=== PATIENT | male | born 1935 | race Caucasian/White ===

== ENCOUNTER 2019-02-28 10:34 | Outpatient (CLI) | payer MEDICARE ==
[2019-02-28] MEDS ORDERED: ISOVUE-370 76%-LOCM 1 ML ONE (13:34)
--- NOTE | 2019-02-28 13:58 | CT ---
CT OF THE ABDOMEN AND PELVIS WITH IV CONTRAST INDICATION: History of malignant carcinoid of the duodenum COMPARISON: CT the abdomen and pelvis from prior radiology associates dated January 20, 2017 FINDINGS: ABDOMEN: Lung bases: Clear Liver: Numerous calcified granuloma. No suspicious focal hepatic lesion. Gallbladder: There are numerous gallstones within the gallbladder. Pancreas: Normal. Adrenal glands: Normal. Spleen: The spleen remains enlarged measuring 16.2 cm with numerous calcified granuloma. Kidneys: There is a 1.9 cm cyst involving the superior pole left kidney which is stable. Right kidney is normal-appearing. Retroperitoneum of the upper abdomen: There are mildly prominent varicosities along the gonadal veins bilaterally. No pathologically enlarged lymph nodes are evident. Pelvis: Small and large bowel: There are scattered colonic diverticula. There is a moderate amount of retaine d stool within colon. Small bowel is of normal caliber. No mesenteric lymphadenopathy is evident. Bladder: Partially decompressed Rectal and perirectal soft tissues:Normal. Reproductive structures: Normal. Free fluid in pelvis: No free fluid is evident. Lymphadenopathy pelvis: No lymphadenopathy is evident. Osseous structures: There is diffuse osteopenia. There is scattered degenerative and osteoarthritic c hange present. No suspicious osteolytic or osteoblastic lesion is identified. IMPRESSION: 1. Stable splenomegaly 2. Stable cholelithiasis 3. Stable left renal cyst. 4. Stable mildly prominent canal vein varicosities. 5. No definite evidence to suggest metastatic disease within the abdomen and pelvis.
== END 2019-02-28 10:35 | disposition home or self-care (01) ==
LOC: BICCT 10:34
PROVIDERS: ATTEND Internal Medicine Hematology & Oncology
DX: C7A.010 Malignant carcinoid tumor of the duodenum (principal); R16.1 Splenomegaly, not elsewhere classified; K80.20 Calculus of gallbladder without cholecystitis without obstruction; N28.1 Cyst of kidney, acquired; I83.90 Asymptomatic varicose veins of unspecified lower extremity
CPT/HCPCS: 74177; Q9966

== ENCOUNTER 2020-08-27 11:37 | Outpatient (CLI) | payer MEDICARE ==
--- NOTE | 2020-08-27 12:42 | CT ---
Head CT without contrast 08/27/2020: Comparison: None HISTORY: Aphasia TECHNIQUE: Axial CT imaging at 5 mm intervals from vertex through skull base without contrast FINDINGS: There is an intra-axial hyperdense lesion within the posterior lateral left frontal lobe me asuring 1.9 x 2.3 cm, consistent with an intra-axial hemorrhage. There is surrounding edema with no significant mass effect or midline shift. The visualized paranasal sinuses and mastoid air cells are well-aerated. No displaced calvarial fract ure. IMPRESSION: There is a 2.3 x 1.9 cm intra-axial hemorrhage within the inferior lateral aspect of the left frontal lobe with surrounding edema. Follow-up MRI of the brain with and without contrast is advised once the hemorrhage has resolved to evaluate for an underlying lesion. This information was r elayed to Dr. Box at 12:35 PM 08/27/2020. At the request of Dr. Box, the patient was sent to the emergency room.
== END 2020-08-27 11:38 | disposition home or self-care (01) ==
LOC: CT 11:37
PROVIDERS: ATTEND Internal Medicine Cardiovascular Disease
DX: R47.01 Aphasia (principal); R60.0 Localized edema; G93.9 Disorder of brain, unspecified; I61.1 Nontraumatic intracerebral hemorrhage in hemisphere, cortical
CPT/HCPCS: 70450

== ENCOUNTER 2020-08-27 12:46 | Inpatient (IN) | payer MEDICARE ==
[2020-08-27 14:06] LABS: INR-International Normal Ratio 1.2; Prothrombin Time 15.2 sec (12.0-14.7)
[2020-08-27 14:09] LABS: #Eosinphils 0.1 thou/uL (0.0-0.7); #Lymphocytes 0.9 thou/uL (1.20-3.40); #Monocytes 0.3 thou/uL (0.11-0.59); %Basophils 0.9 % (0.0-1.0); %Eosinophils 2.5 % (0.0-10.0); %Lymphocytes 26.3 % (21.0-51.0); %Monocytes 9.1 % (0.0-10.0); %Neutrophils 61.2 % (42.0-75.0); Hemoglobin 11.4 g/dL (14.0-18.0); Mean Corpuscular HGB CONC 32.6 g/dL (32.0-36.0); Mean Corpuscular Hemoglobin 32.6 pg (27.0-31.0); Platelet Count 77 thou/uL (130-400); RBC Distribution Width 13.6 % (11.5-14.5); White Blood Cell (WBC) Count 3.2 thou/uL (4.8-10.8)
[2020-08-27 14:26] LABS: ALT (SGPT) 17 U/L (8-55); AST (SGOT) 31 U/L (5-34); Albumin 3.4 g/dL (3.4-4.8); Alkaline Phosphatase 82 U/L (40-110); Anion Gap 11 mmol/L (10-20); BUN (Urea Nitrogen) 25 mg/dL (8.4-25.7); Bilirubin, Total 1.2 mg/dL (0.2-1.2); Calc. Creatinine Clearance 0 mL/min (70-130); Calcium 9.6 mg/dL (7.8-10.44); Carbon Dioxide 28 mmol/L (23-31); Chloride 104 mmol/L (98-107); Globulin 3.9 g/dL (2.4-3.5); Glucose 115 mg/dL (83-110); Potassium 3.8 mmol/L (3.5-5.1); Protein, Total 7.3 g/dL (5.8-8.1); Sodium 139 mmol/L (136-145)
--- NOTE | 2020-08-27 15:08 | PDOC.HHP ---
Hospitalist HPI - History of Present Illness Left facial drooping and expressive aphasia History of Present Illness: Patient is a 85-year-old male with a past medical history of coronary artery disease status post CABG, congestive heart failure status post AICD and history of acute blood loss anemia and iron deficiency anemia. He presents to the ER at the request of Dr. Box who was seeing him early today during a routine cardiology visit. Patient has been having left-sided facial drooping and mild expressive aphasia for the past 3 days. He first experienced some drooping in the left lower portion of his face. Didn't make much of it. He continued with his normal routine. His symptoms progressed with difficulty with articulating words. Denies any loss of upper or lower extremity motor function. He went to see his eligibility services representative today and was urged to present to the ED for further evaluation. He is currently on low-dose aspirin. He was found to have acute intracerebral bleeding in the ER. Of note, patient has prior history of bleeding. He has been seen for rectal bleeding back in 2017. Colonoscopy showed evidence of polyps. He also underwent EGD at that time, biopsy was taken and pathology revealed focal gastric metaplasia. ED Course: Arrived in the ER hemodynamically stable Patient has no focal neurologic deficit as evidenced by mild expressive aphasia and left-sided drooping Pancytopenic hemoglobin of 11 and platelet of 77. Coagulation panel within normal limits CT head revealed evidence of intracranial bleeding measuring 2.3 cm within the left posterior lateral frontal lobe. There is surrounding edema but no mass- effect or midline shift. Neurosurgery has been consulted by ER. They are not recommending any intervention at this time except monitoring patient overnight - Exam General Appearance: NAD, awake alert General - other findings: Left-sided facial drooping Eye: PERRL, anicteric sclera Neck: supple, symmetric, no JVD Heart: RRR, no murmur, no gallops, no rubs Heart - other findings: AICD in place Respiratory: CTAB, no wheezes, no rales, no ronchi Extremities: no clubbing, no edema Extremities - other findings: Good range of motion in all extremities Neurological: facial droop, speech deficit Musculoskeletal: normal tone, normal strength, no muscle wasting Musculoskeletal - other findings: 5 out of 5 strength in all extremities Psychiatric: normal affect, normal behavior Hospitalist Results - Labs Result Diagrams: 08/27/20 13:10 08/27/20 13:10 Lab results: WBC 3.2 thou/uL (4.8-10.8) L 08/27/20 13:10 Hgb 11.4 g/dL (14.0-18.0) L 08/27/20 13:10 Hct 35.0 % (42.0-52.0) L 08/27/20 13:10 MCV 100.0 fL (78.0-98.0) H 08/27/20 13:10 Plt Count 77 thou/uL (130-400) L 08/27/20 13:10 Neutrophils % 61.2 % (42.0-75.0) 08/27/20 13:10 Sodium 139 mmol/L (136-145) 08/27/20 13:10 Potassium 3.8 mmol/L (3.5-5.1) 08/27/20 13:10 Chloride 104 mmol/L (98-107) 08/27/20 13:10 Carbon Dioxide 28 mmol/L (23-31) 08/27/20 13:10 BUN 25 mg/dL (8.4-25.7) 08/27/20 13:10 Creatinine 1.04 mg/dL (0.7-1.3) 08/27/20 13:10 Glucose 115 mg/dL (83-110) H 08/27/20 13:10 Calcium 9.6 mg/dL (7.8-10.44) 08/27/20 13:10 Total Bilirubin 1.2 mg/dL (0.2-1.2) 08/27/20 13:10 AST 31 U/L (5-34) 08/27/20 13:10 ALT 17 U/L (8-55) 08/27/20 13:10 Alkaline Phosphatase 82 U/L (40-110) 08/27/20 13:10 Serum Total Protein 7.3 g/dL (5.8-8.1) 08/27/20 13:10 Albumin 3.4 g/dL (3.4-4.8) 08/27/20 13:10 Hospitalist H&P A/P - Problem (1) Hx of CABG Status: Acute (2) Anemia, iron deficiency Code(s): D50.9 - IRON DEFICIENCY ANEMIA, UNSPECIFIED Status: Acute (3) CAD (coronary artery disease) Code(s): I25.10 - ATHSCL HEART DISEASE OF [place] CORONARY ARTERY W/O ANG PCTRS Status: Chronic (4) HTN (hypertension) Code(s): I10 - ESSENTIAL (PRIMARY) HYPERTENSION Status: Chronic - Plan Plan: Patient is a 86-year-old male with a known past medical history of coronary artery disease status post CABG, congestive heart failure status post AICD and acute blood loss anemia and iron deficiency anemia. Is currently admitted with intracranial hemorrhage after he presented with left-sided facial drooping and mild expressive aphasia. CT of the head showed 2.3 cm bleeding of left posterior parietal lobe. Neurosurgery recommended nonoperative management at this time except for monitoring. Patient is alert and awake. His mental status is intact. He still has the above neurologic deficit. Motor function preserved in all extremities, no cognitive deficits during our encounter. His BP has ranged from SBP 112 to 140 mmHg Acute intracranial bleeding Coronary artery disease status post CABG Congestive heart failure status post AICD Iron deficiency anemia Pancytopenia Plan: Hold ASA or other meds with potential to cause bleeding Admit under observation to the stroke unit Neuro checks q 3 hours BP control with PRN labetalol IV. Goal SBP 120 - 140 mmHg SCD for DVT ppx Keep NPO until swallow evaluation. AGRONOMY RESEARCH MANAGER ordered As needed lorazepam for seizures Need a repeat MRI of the brain with and without contrast in approximately 3 months to evaluate for underlying lesions.
[2020-08-27] MEDS ORDERED: Lorazepam 2 MG/ML VIAL SLOW IVP PRN (15:27)
[2020-08-27] MEDS ORDERED: Labetalol HCl 100 MG/20 ML VIAL SLOW IVP PRN (15:32)
[2020-08-27 18:50] VITALS: BMI 19.6
[2020-08-28] MEDS ORDERED: FLU VACC QS2020-21(65YR UP)/PF 240 MCG/0.7 ML SYRINGE IM ONE (09:00)
--- NOTE | 2020-08-28 11:00 | CT ---
Exam: Head CT without contrast HISTORY: Follow-up intracranial hemorrhage COMPARISON: 08/27/2020 FINDINGS: Hemorrhage: Redemonstration of intraparenchymal hemorrhage centered in the left frontal temporal jenny on. Currently, the hemorrhagic focus measures 2.6 x 2.0 cm, previously measuring 2.4 x 2.0 cm. There is a small level of layering hematocrit. There is slightly worsening peripheral edema without s ignificant mass effect or midline shift. There are no new areas of parenchymal hemorrhage. Brain parenchyma: Worsening edema associated with intraparenchymal hemorrhage in the left cerebrum. W ith regard to the right cerebrum, cortical roberts-white matter differentiation is preserved. Ventricular system: Ventricles and sulci are patent and symmetric. Calvarium: Intact. Sinuses and mastoid air cells: Adequate aeration. IMPRESSION: 1. Essentially stable intraparenchymal hemorrhage in the left frontal temporal region. 2. Slightly worsening associated edema without significant mass effect or midline shift.
[2020-08-28 12:50] LABS: SARS-CoV-2 PCR by NAA Not Detected (NotDetected)
--- NOTE | 2020-08-28 16:29 | PDOC.DS.DS ---
Provider - Provider Date of Admission: 08/28/20 10:29 Date of Discharge: 08/28/20 Admitting Provider: Prince Karl Zaragoza MD Consultations: Other (Neurosurgery) Primary Care Physician: Jacobo Banegas MD Course - Labs Lab Results: 08/27/20 13:10 08/27/20 13:10 Abnormal Lab Results - Last 48 hrs 08/27/20 13:10: PT 15.2 H 08/27/20 13:10: WBC 3.2 L, RBC 3.50 L, Hgb 11.4 L, Hct 35.0 L, MCV 100.0 H, MCH 32.6 H, Plt Count 77 L, Lymphocytes # 0.9 L 08/27/20 13:10: Globulin 3.9 H, Albumin/Globulin Ratio 0.9 L - Physical Exam Vitals: Vital Signs (12 hours) Temp Pulse Resp BP Pulse Ox 08/28/20 11:00 97.9 F 71 18 114/55 L 98 08/28/20 07:30 97.9 F 70 20 108/53 L 97 Weight Admit Weight 145 lb 1.6 oz Weight 145 lb 1.6 oz Physical Exam: The patient was seen and examined on the day of discharge. Plan - Discharge Medications Home Medications: Medication Instructions Recorded Confirmed Type Bumetanide 1 mg PO DAILY 01/08/17 08/28/20 History Rosuvastatin [Crestor] 10 mg PO HS 01/08/17 08/28/20 History Spironolactone [Aldactone] 25 mg PO DAILY 01/08/17 08/28/20 History Sacubitril/Valsartan [Entresto 24 1 tab PO HS 08/28/20 08/28/20 History mg-26 mg Tablet] Allergies: No Known Allergies Allergy (Verified 08/27/20 18:28) - Discharge Instructions Discharge Instructions:: PLEASE DO NOT TAKE BLOOD PRESSURE MEDICATION OR YOUR DIURETIC IF YOUR BLOOD PRESSURE IS <150 SYSTOLIC ( TOP NUMBER). PLEASE CALL DR BANEGAS FOR APPOINTMENT WHEN TO START ON ASPIRIN. YOU WILL NEED REPEAT SCAN. Activity:: Activity as Tolerated Nourishment:: Heart Healthy Diet Therapies:: Speech Therapy - Follow up Plan Referrals: Jacobo Banegas MD [Primary Care Provider] - Viry Box MD [Active] - Disposition: HOME
--- NOTE | 2020-08-28 16:43 | PDOC.DS.DS ---
Provider - Provider Date of Admission: 08/28/20 10:29 Date of Discharge: 08/28/20 Admitting Provider: Prince Karl Zaragoza MD Primary Care Physician: Jacobo Banegas MD Course - Hospital Course Hospital Course: Patient is a 85-year-old male with a history of coronary disease and CAD who presents to the hospital from cardiology's office for right facial drooping and expressive aphasia. Patient's this has been going on for the past 2 or 3 days. Patient in the ER had a CT head which indicated a brain bleed on the left. Patient's repeat scan of the brain indicated some worsening edema. He was seen by physical therapy no changes. He was seen by speech recommended mechanical soft diet. I spoke with the patient's in detail that he will need to follow-up with primary care doctor. With neurosurgery recommended starting aspirin in 2 weeks. However recommended repeating of the scan to make sure his bleed is resolving and not worsening. Patient is on 2 blood pressure medications and a diuretic I have gated the and written instructions not to give him blood pressure medications or diuretics if his pressure is less than 150 systolic. His blood pressure here has been in the 100s. Patient and his understood - Labs Lab Results: 08/27/20 13:10 08/27/20 13:10 Abnormal Lab Results - Last 48 hrs 08/27/20 13:10: PT 15.2 H 08/27/20 13:10: WBC 3.2 L, RBC 3.50 L, Hgb 11.4 L, Hct 35.0 L, MCV 100.0 H, MCH 32.6 H, Plt Count 77 L, Lymphocytes # 0.9 L 08/27/20 13:10: Globulin 3.9 H, Albumin/Globulin Ratio 0.9 L - Physical Exam Vitals: Vital Signs (12 hours) Temp Pulse Resp BP Pulse Ox 08/28/20 11:00 97.9 F 71 18 114/55 L 98 08/28/20 07:30 97.9 F 70 20 108/53 L 97 Weight Admit Weight 145 lb 1.6 oz Weight 145 lb 1.6 oz Physical Exam: The patient was seen and examined on the day of discharge. Problem - Discharge Plan Assessment: #1 right-sided ischial droop, left hemorrhagic bleed, hypertension, hyperlipidemia Plan - Discharge Medications Home Medications: Medication Instructions Recorded Confirmed Type Bumetanide 1 mg PO DAILY 01/08/17 08/28/20 History Rosuvastatin [Crestor] 10 mg PO HS 01/08/17 08/28/20 History Spironolactone [Aldactone] 25 mg PO DAILY 01/08/17 08/28/20 History Sacubitril/Valsartan [Entresto 24 1 tab PO HS 08/28/20 08/28/20 History mg-26 mg Tablet] Allergies: No Known Allergies Allergy (Verified 08/27/20 18:28) - Discharge Instructions Discharge Instructions:: PLEASE DO NOT TAKE BLOOD PRESSURE MEDICATION OR YOUR DIURETIC IF YOUR BLOOD PRESSURE IS <150 SYSTOLIC ( TOP NUMBER). PLEASE CALL DR BANEGAS FOR APPOINTMENT WHEN TO START ON ASPIRIN. YOU WILL NEED REPEAT SCAN. Activity:: Activity as Tolerated Nourishment:: Heart Healthy Diet Therapies:: Speech Therapy - Follow up Plan Referrals: Jacobo Banegas MD [Primary Care Provider] - Viry Box MD [Active] - Disposition: HOME Quality - Care Measures CORE MEASURES:: N/A
[2020-08-28 17:00] VITALS: TEMP 97.6
[2020-08-28] MEDS ORDERED: Ferrous Sulfate 325 MG TAB PO SCH (17:00)
[2020-08-28 18:10] VITALS: BP 116/58
[2020-08-28] MEDS ORDERED: Rosuvastatin 10 MG TAB PO SCH (21:00)
--- NOTE | 2020-08-28 21:58 | CON ---
DATE OF CONSULTATION: TIME OF ENCOUNTER: 12:15 p.m. HISTORY OF PRESENT ILLNESS: Mr. Dean is an 85-year-old man who was admitted yesterday afternoon after he presented to the emergency department for 3 days worth of facial drooping on the left. He has seen his tufting machine fixer who ultimately ordered a CT scan in the outpatient setting, then was found to have a large left temporal intracerebral hemorrhage that looks to be subacute in nature with already some surrounding vasogenic edema. There is an area of almost cystic appearing hypodensities in the anterior portion of this hemorrhage. Minimal mass effect and certainly no midline shift is present. The patient does take 81 mg aspirin daily for coronary arterial disease, stents and coronary arterial bypass grafts some 5 years ago, but nothing since then. I am seeing Mr. Dean at bedside. He is alert, awake, and oriented x4, understands his situation and is anxious to get out of the hospital. A repeat CT scan was performed earlier today. It does actually . There has been a little more degradation from 24 hours ago. There has also been a slight increase in the vasogenic edema. This is certainly not unexpected and will likely worsen to some degree more over the next several days before it starts to improve again. This may not affect him from the standpoint of symptom presentation at all. Neurosurgery would like to follow up in around 6 to 8 weeks with an MRI with and without contrast of the brain at that time. He will need to hold his 81 mg aspirin for the next 2 weeks and may restart at that point. If he has any concerns, he is encouraged to call our office. Job ID: [id number]
--- NOTE | 2020-08-29 15:01 | PQF ---
CLINICAL DOCUMENTATION CLARIFICATION FORM: Dear Dr. Meghan Ratliff Date: 08.29.20 Please exercise your independent, professional judgment in responding to the clarification form. Clinical indicators are provided on the bottom of this form for your review. Please check appropriate box(es): [x ] Protein Calorie Malnutrition: [ ] Mild [ ] Moderate [ x ] Severe [ ] Underweight without malnutrition [ ] Cachexia [ ] Other diagnosis [ ] Unable to determine For continuity of documentation, please document condition throughout progress notes and discharge summary. Thank You. To be completed by CDI/Coding staff for physician review: CLINICAL INDICATORS - SIGNS / SYMPTOMS / LABS / RESULTS AND LOCATION IN MR 1.20 Nutrition Therapy Assessment (BV) * BMI 19.7 * patient report of lower intake recently (suspect patient meeting at least less than 75% of estimated needs), 8.2% weight loss in 2 weeks * severe muscle wasting and fat loss present * ..severe malnutrition in the context of acute on chronic illness 1. Recommend a liberalized Regular diet type with textures per DRUM TESTER to promote PO intake. Patient will not eat eggs or "anything with a bill" (pork, beef, and fish only) 2. Recommend Ensure Enlive BID. Suspect patient will not drink, encouraged intake and recommend mixing with ice cream or other beverages per flavor preferences RISK FACTORS / RESULTS AND LOCATION IN MR 1.19 H&P ([facility]): PMH: CAD S/P CABG; CHF; Acute intracranial bleeding; iron def anemia; pancytopenia TREATMENT / RESULTS AND LOCATION IN MR 1.20 Nutrition Therapy Assessment (BV) 1. Recommend a liberalized Regular diet type with textures per DRUM TESTER to promote PO intake. Patient will not eat eggs or "anything with a bill" (pork, beef, and fish only) 2. Recommend Ensure Enlive BID. Suspect patient will not drink, encouraged intake and recommend mixing with ice cream or other beverages per flavor preferences Moderate Malnutrition (in acute illness) Energy Intake: <75% of estimated energy requirement for > 7 days Weight Loss: 1-2%/1 week; 5%/ 1 month; 7.5%/3 months Other: mild body fat loss; mild muscle mass loss; mild fluid accumulation; Severe Malnutrition (in acute illness) Energy Intake: = 50% of estimated energy requirement for = 5 days Weight Loss: >2%/1 week; >5%/1 month; >7.5%/3 months Other: moderate body fat loss; moderate muscle mass loss; moderate- severe fluid accumulation; measurably reduced plug cutter strength Moderate Malnutrition (in chronic illness) Energy Intake: <75% of estimated energy requirement for =1 month Weight Loss: 5%/1 month; 7.5%/3 months; 10%/6 months; 20%/1 year Other: mild body fat loss; mild muscle mass loss; mild fluid accumulation Severe Malnutrition (in chronic illness) Energy Intake: =75% of estimated energy requirement for =1 month Weight Loss: >5%/1 month; >7.5%/3 months; >10%/6 months; >20%/1 year Other: severe body fat loss; severe muscle mass loss; severe fluid accumulation; measurably reduced plug cutter strength CDS Signature: Selena Flores RN, CCDS Phone #: [phone] [email or web address] This is a permanent part of the Medical Record [facility]
--- NOTE | 2020-09-14 16:41 | EKG ---
Test Reason : BRAIN BLEED Blood Pressure : / mmHG Vent. Rate : 090 BPM Atrial Rate : 078 BPM P-R Int : 138 ms QRS Dur : 156 ms QT Int : 454 ms P-R-T Axes : 000 -29 081 degrees QTc Int : 555 ms AV dual-paced rhythm with frequent ventricular-paced complexes and with occasional Premature ventricu lar complexes Abnormal ECG Confirmed by SHANTA BURNETTE, JANAY Hansen ([id number]), newspaper managing editor SALVATORE ROY ([id number]) on 09/14/2020 4:40:55 PM Referred By: Confirmed By:JANAY WOMACK MD
== END 2020-08-28 16:40 | disposition home or self-care (01) | DRG 64 ==
LOC: ERS 12:46 → ERHOLD 13:42 → 3SE 18:38 → OBSVTOIN 08-28 10:29
PROVIDERS: ADMIT Internal Medicine; ATTEND Internal Medicine
DX: I61.1 Nontraumatic intracerebral hemorrhage in hemisphere, cortical (principal); G93.6 Cerebral edema; R47.01 Aphasia; D61.818 Other pancytopenia; Z20.822 Contact with and (suspected) exposure to COVID-19; Z23 Encounter for immunization; R29.810 Facial weakness; D50.9 Iron deficiency anemia, unspecified; I50.9 Heart failure, unspecified; I25.10 Atherosclerotic heart disease of native coronary artery without angina pectoris; I11.0 Hypertensive heart disease with heart failure; E78.5 Hyperlipidemia, unspecified; Z95.1 Presence of aortocoronary bypass graft; Z95.810 Presence of automatic (implantable) cardiac defibrillator; Z95.5 Presence of coronary angioplasty implant and graft; Z79.899 Other long term (current) drug therapy; Z79.82 Long term (current) use of aspirin; G93.9 Disorder of brain, unspecified; R60.0 Localized edema
CPT/HCPCS: 70450; 80053; 85025; 85610; 85730; 87635; 90471; 90732; 93005; G0009; G0378; U0003; U0005

== ENCOUNTER 2020-10-07 10:05 | Outpatient (CLI) | payer MEDICARE ==
--- NOTE | 2020-10-07 11:08 | CT ---
Exam: Head CT without contrast HISTORY: Follow-up intracranial hemorrhage COMPARISON: 08/28/2020 FINDINGS: Hemorrhage: No intraparenchymal hemorrhage or extra-axial hematoma. Brain parenchyma: Cortical roberts-white matter differentiation is preserved. No mass effect or midline shift. Basilar cisterns are patent.There are evolutionary changes involving the left cerebrum compatible with changes from remote hemorrhage. No significant volume loss. Ventricular system: Ventricles and sulci are patent and symmetric. Calvarium: Intact. Sinuses and mastoid air cells: Adequate aeration. IMPRESSION: 1. Resolution of personally noted intracranial hemorrhage centered in the left temporal lobe. There a re expected evolutionary changes in the white matter secondary to remote hemorrhage.
== END 2020-10-07 10:06 | disposition home or self-care (01) ==
LOC: BICCT 10:05
PROVIDERS: ATTEND Neurological Surgery
DX: I61.9 Nontraumatic intracerebral hemorrhage, unspecified (principal); I62.9 Nontraumatic intracranial hemorrhage, unspecified
CPT/HCPCS: 70450

== ENCOUNTER 2021-06-13 13:16 | Inpatient (IN) | payer MEDICARE ==
[~2021-06-13 13:16] MED LIST: Iopamidol 370 76% 50 ML VIAL FS ONE; Iopamidol-370 76% 500 ML 1 ML ONE
[2021-06-13 14:55] LABS: #Lymphocytes 0.6 thou/uL (1.20-3.40); #Monocytes 0.3 thou/uL (0.11-0.59); #Neutrophils 2.8 thou/uL (1.40-6.50); %Basophils 0.4 % (0.0-1.0); %Eosinophils 1.2 % (0.0-10.0); %Lymphocytes 16.8 % (21.0-51.0); %Monocytes 6.7 % (0.0-10.0); %Neutrophils 74.9 % (42.0-75.0); Hemoglobin 11.5 g/dL (14.0-18.0); Mean Corpuscular HGB CONC 34.1 g/dL (32.0-36.0); Mean Corpuscular Hemoglobin 33.5 pg (27.0-31.0); Mean Corpuscular Volume 98.3 fL (78.0-98.0); RBC Distribution Width 15.2 % (11.5-14.5); Red Blood Cell (RBC) Count 3.43 mill/uL (4.70-6.10); White Blood Cell (WBC) Count 3.7 thou/uL (4.8-10.8)
[2021-06-13 15:02] LABS: ALT (SGPT) 15 U/L (8-55); AST (SGOT) 22 U/L (5-34); Albumin 3.4 g/dL (3.4-4.8); Alkaline Phosphatase 68 U/L (40-110); Anion Gap 11 mmol/L (10-20); BUN (Urea Nitrogen) 38 mg/dL (8.4-25.7); Bilirubin, Total 1.6 mg/dL (0.2-1.2); Calc. Creatinine Clearance 0 mL/min (70-130); Calcium 9.6 mg/dL (7.8-10.44); Carbon Dioxide 27 mmol/L (23-31); Chloride 102 mmol/L (98-107); Globulin 3.3 g/dL (2.4-3.5); Glucose 135 mg/dL (83-110); Potassium 4.8 mmol/L (3.5-5.1); Protein, Total 6.7 g/dL (5.8-8.1); Sodium 135 mmol/L (136-145)
[2021-06-13 15:12] LABS: INR-International Normal Ratio 1.2; PTT 30.9 sec (22.9-36.1); Prothrombin Time 14.9 sec (12.0-14.7)
[2021-06-13 15:14] LABS: Mean Platelet Volume 8.4 fL (7.4-10.4); Platelet Count 105 thou/uL (130-400); Platelet Morphology Comment Appears Decreased; RBC Morphology Normal
[2021-06-13] MEDS ORDERED: Dexamethasone 10 MG/ML VIAL ONE (15:47)
[2021-06-13 17:49] LABS: Bilirubin Negative (Negative); Blood, Urine Negative (Negative); Clarity Clear (Clear); Glucose, Urine (Dipstick) Normal (Negative); Ketone, Urine Negative (Negative); Leukocyte Negative Leu/uL (Negative); Nitrite Negative (Negative); Protein, Urine (Dipstick) Negative (Neg-Trace); Specific Gravity, Urine 1.014 (1.002-1.036); Urobilinogen Normal mg/dL (Less than 2); pH, Urine 6.5 (5.0-9.0)
[2021-06-13] MEDS ORDERED: Acetaminophen 650 MG Suppository PR PRN (17:59)
[2021-06-13] MEDS ORDERED: Senokot S 8.6-50 MG TAB PO PRN (17:59)
[2021-06-13] MEDS ORDERED: Ondansetron PF 4 MG/2 ML Vial IVP PRN (17:59)
[2021-06-13] MEDS ORDERED: Acetaminophen 325 MG TAB PO PRN (17:59)
[2021-06-13] MEDS ORDERED: Ondansetron ODT 4 MG TAB PO PRN (17:59)
[2021-06-13 18:46] LABS: Hemoglobin A1c 5.1 % (4.0-6.0)
[2021-06-13 18:54] LABS: Magnesium 2.8 mg/dL (1.6-2.6)
[2021-06-13] MEDS ORDERED: Sodium Chloride 0.9% 1,000 ML IV SCH (19:30)
[2021-06-13 20:10] VITALS: BMI 19.9
[2021-06-13] MEDS: Dexamethasone 4 mg/ml Vial SLOW IVP SCH (22:30)
[2021-06-14 03:10] LABS: Bacteria/HPF None Seen HPF (None Seen); Bilirubin Negative (Negative); Blood, Urine Negative (Negative); Clarity Clear (Clear); Glucose, Urine (Dipstick) Normal (Negative); Ketone, Urine Negative (Negative); Leukocyte Negative Leu/uL (Negative); Nitrite Negative (Negative); Protein, Urine (Dipstick) Negative (Neg-Trace); RBC/HPF 0-3 HPF (0-3); Specific Gravity, Urine 1.034 (1.002-1.036); Squamous Epithelial None Seen HPF (0-3); Urobilinogen Normal mg/dL (Less than 2); WBC/HPF 0-3 HPF (0-3); pH, Urine 6.5 (5.0-9.0)
[2021-06-14 03:20] LABS: Urine Culture Reflex No No
[2021-06-14] MEDS: Dexamethasone 4 mg/ml Vial SLOW IVP SCH ×3 (05:25→16:57)
[2021-06-14 06:49] LABS: Anion Gap 11 mmol/L (10-20); BUN (Urea Nitrogen) 39 mg/dL (8.4-25.7); Calc. Creatinine Clearance 45 mL/min (70-130); Carbon Dioxide 23 mmol/L (23-31); Chloride 104 mmol/L (98-107); Glucose 149 mg/dL (83-110); Sodium 133 mmol/L (136-145)
[2021-06-14 07:44] LABS: #Lymphocytes 0.2 thou/uL (1.20-3.40); #Neutrophils 1.6 thou/uL (1.40-6.50); %Eosinophils 0.2 % (0.0-10.0); %Lymphocytes 10.5 % (21.0-51.0); %Monocytes 1.5 % (0.0-10.0); %Neutrophils 87.8 % (42.0-75.0); Hemoglobin 9.9 g/dL (14.0-18.0); Mean Corpuscular HGB CONC 33.8 g/dL (32.0-36.0); Mean Corpuscular Hemoglobin 33.1 pg (27.0-31.0); Mean Platelet Volume 8.4 fL (7.4-10.4); Platelet Count 73 thou/uL (130-400); Platelet Morphology Comment Appears Decreased; RBC Distribution Width 14.9 % (11.5-14.5); Red Blood Cell (RBC) Count 2.99 mill/uL (4.70-6.10); White Blood Cell (WBC) Count 1.8 thou/uL (4.8-10.8)
[2021-06-14] MEDS ORDERED: FLU VACC QS2021-22(65YR UP)/PF 240 MCG/0.7 ML SYRINGE IM ONE (09:00)
[2021-06-14] MEDS ORDERED: Methocarbamol 500 MG TAB PO SCH (09:15)
[2021-06-14] MEDS: Midodrine HCl 5 MG TAB PO SCH ×3 (10:01→18:03)
[2021-06-14] MEDS: Amiodarone 200 MG TAB PO SCH (10:05)
[2021-06-14] MEDS ORDERED: Calcium Carbonate 500 MG ChewTAB PO PRN (10:29)
[2021-06-14] MEDS ORDERED: Simethicone Chewable 80 MG TAB PO PRN (10:29)
[2021-06-14 15:22] LABS: SARS-CoV-2 PCR by NAA Not Detected (NotDetected)
[2021-06-15] MEDS ORDERED: Methocarbamol 500 MG TAB PO SCH (00:30)
[2021-06-15] MEDS ORDERED: Spironolactone 25 MG TAB PO SCH (08:00)
[2021-06-15] MEDS ORDERED: Fish Oil 1,000 MG CAP PO SCH (09:00)
[2021-06-15] MEDS: Amiodarone 200 MG TAB PO SCH (09:41)
[2021-06-15] MEDS: Midodrine HCl 5 MG TAB PO SCH ×2 (09:42→15:58)
[2021-06-15 16:26] VITALS: BP 105/55; TEMP 98.3
[2021-06-16] MEDS ORDERED: Bumetanide 1 MG TAB PO SCH (09:00)
== END 2021-06-15 17:00 | disposition home or self-care (01) | DRG 65 ==
LOC: ERS 13:16 → NEURO 17:34
PROVIDERS: ADMIT Family Medicine; ATTEND Nurse Practitioner Family
DX: I61.9 Nontraumatic intracerebral hemorrhage, unspecified (principal); Z20.822 Contact with and (suspected) exposure to COVID-19; N17.9 Acute kidney failure, unspecified; I48.20 Chronic atrial fibrillation, unspecified; E87.1 Hypo-osmolality and hyponatremia; D61.818 Other pancytopenia; I50.22 Chronic systolic (congestive) heart failure; E85.4 Organ-limited amyloidosis; I13.0 Hypertensive heart and chronic kidney disease with heart failure and stage 1 through stage 4 chronic kidney disease, or unspecified chronic kidney disease; R13.10 Dysphagia, unspecified; I68.0 Cerebral amyloid angiopathy; I25.10 Atherosclerotic heart disease of native coronary artery without angina pectoris; K21.9 Gastro-esophageal reflux disease without esophagitis; E78.5 Hyperlipidemia, unspecified; R73.9 Hyperglycemia, unspecified; I50.9 Heart failure, unspecified; Z79.82 Long term (current) use of aspirin; Z95.1 Presence of aortocoronary bypass graft; Z95.810 Presence of automatic (implantable) cardiac defibrillator; Z79.899 Other long term (current) drug therapy; Z90.49 Acquired absence of other specified parts of digestive tract; Z98.890 Other specified postprocedural states; Z82.49 Family history of ischemic heart disease and other diseases of the circulatory system
CPT/HCPCS: 36415; 70450; 71260; 74177; 80048; 80053; 81001; 81003; 82274; 83036; 83735; 83880; 84484; 85025; 85610; 85730; 93005; 96374; J1100; Q0162; Q9967; U0003; U0005

== ENCOUNTER 2021-07-08 16:18 | Outpatient (CLI) | payer MEDICARE ==
[2021-07-09 01:34] LABS: SARS-CoV-2 PCR by NAA Not Detected (NotDetected)
== END 2021-07-08 16:19 | disposition home or self-care (01) ==
LOC: LABBT 16:18
PROVIDERS: ATTEND Internal Medicine Gastroenterology
DX: Z01.812 Encounter for preprocedural laboratory examination (principal); Z20.822 Contact with and (suspected) exposure to COVID-19
CPT/HCPCS: U0003; U0005

== ENCOUNTER 2022-04-15 10:38 | Inpatient (IN) | payer MEDICARE ==
[2022-04-15] MEDS ORDERED: cefTRIAXone\\ROCEPHIN 1 GM VIAL ONE (12:37)
[2022-04-15 12:43] LABS: #Lymphocytes 0.4 thou/uL (1.20-3.40); #Monocytes 0.4 thou/uL (0.11-0.59); %Eosinophils 0.2 % (0.0-10.0); %Lymphocytes 5.3 % (21.0-51.0); %Monocytes 4.8 % (0.0-10.0); %Neutrophils 89.6 % (42.0-75.0); Hemoglobin 12.4 g/dL (14.0-18.0); Mean Corpuscular HGB CONC 33.5 g/dL (32.0-36.0); Mean Platelet Volume 7.1 fL (7.4-10.4); Platelet Count 93 thou/uL (130-400); RBC Distribution Width 13.3 % (11.5-14.5); Red Blood Cell (RBC) Count 3.43 mill/uL (4.70-6.10); White Blood Cell (WBC) Count 7.8 thou/uL (4.8-10.8)
[2022-04-15 13:05] LABS: ALT (SGPT) 20 U/L (8-55); AST (SGOT) 27 U/L (5-34); Albumin 3.4 g/dL (3.4-4.8); Alkaline Phosphatase 94 U/L (40-110); Anion Gap 18 mmol/L (10-20); BUN (Urea Nitrogen) 20 mg/dL (8.4-25.7); Bilirubin, Total 1.8 mg/dL (0.2-1.2); CK (CPK) 24 U/L (30-200); Calc. Creatinine Clearance 0 mL/min (70-130); Calcium 9.9 mg/dL (7.8-10.44); Carbon Dioxide 24 mmol/L (23-31); Chloride 97 mmol/L (98-107); Estimated GFR 50; Globulin 3.7 g/dL (2.4-3.5); Glucose 280 mg/dL (83-110); Potassium 3.8 mmol/L (3.5-5.1); Protein, Total 7.1 g/dL (5.8-8.1); Sodium 135 mmol/L (136-145)
[2022-04-15 13:06] LABS: INR-International Normal Ratio 1.2; PTT 31.8 sec (22.9-36.1); Prothrombin Time 15.5 sec (12.0-14.7)
[2022-04-15] MEDS ORDERED: Ondansetron ODT 4 MG TAB PO PRN (13:59)
[2022-04-15] MEDS ORDERED: Senokot S 8.6-50 MG TAB PO PRN (13:59)
[2022-04-15] MEDS ORDERED: Ondansetron PF 4 MG/2 ML Vial IVP PRN (13:59)
[2022-04-15] MEDS ORDERED: VANCOMYCIN 1.25 GM/250 ML BAG 1.25 GM in Premix Bag 1 BAG IVPB SCH (14:00)
[2022-04-15] MEDS ORDERED: Sodium Chloride 0.9% 1,000 ML IV SCH (14:00)
[2022-04-15 14:04] LABS: Specific Gravity, Urine 1.025 (1.005-1.030); pH, Urine 6.5 (5.0-9.0)
[2022-04-15 14:05] LABS: Bilirubin Unable to Interpret (Negative); Blood, Urine Unable to Interpret (Negative); Clarity Hazy (Clear); Glucose, Urine (Dipstick) Unable to Interpret mg/dL (Negative); Ketone, Urine Unable to Interpret mg/dL (Negative); Leukocyte Unable to Interpret (Negative); Nitrite Unable to Interpret (Negative); Protein, Urine (Dipstick) Unable to Interpret mg/dL (Neg-Trace); Urobilinogen UNABLE TO INTERPRET mg/dL (Less than 2)
[2022-04-15 14:06] LABS: Bacteria/HPF 1+ HPF (None Seen); RBC/HPF Greater than 50 HPF (0-3); Squamous Epithelial 0-3 HPF (0-3)
[2022-04-15] MEDS ORDERED: Cefepime 1 GM in Sodium Chloride 0.9% 100 ML IVPB SCH (15:00)
[2022-04-15] MEDS: Acetaminophen 325 MG TAB PO PRN ×2 (16:00→20:59)
[2022-04-15 16:03] LABS: Lactic Acid 4.2 mmol/L (0.5-2.2)
[2022-04-15] MEDS: Midodrine HCl 5 MG TAB PO SCH (20:49)
[2022-04-16] MEDS: Melatonin 3 MG TAB PO PRN ×2 (00:47→21:53)
[2022-04-16] MEDS ORDERED: Morphine 2 MG/ML VIAL SLOW IVP SCH (01:52)
[2022-04-16 04:43] LABS: ALT (SGPT) 14 U/L (8-55); AST (SGOT) 19 U/L (5-34); Albumin 2.6 g/dL (3.4-4.8); Alkaline Phosphatase 66 U/L (40-110); Anion Gap 14 mmol/L (10-20); BUN (Urea Nitrogen) 21 mg/dL (8.4-25.7); Bilirubin, Total 1.7 mg/dL (0.2-1.2); Calc. Creatinine Clearance 40 mL/min (70-130); Calcium 8.7 mg/dL (7.8-10.44); Carbon Dioxide 23 mmol/L (23-31); Chloride 104 mmol/L (98-107); Estimated GFR 61; Globulin 2.8 g/dL (2.4-3.5); Glucose 153 mg/dL (83-110); Potassium 4.6 mmol/L (3.5-5.1); Protein, Total 5.4 g/dL (5.8-8.1); Sodium 136 mmol/L (136-145)
[2022-04-16 04:59] LABS: #Lymphocytes 0.3 thou/uL (1.20-3.40); #Monocytes 0.6 thou/uL (0.11-0.59); #Neutrophils 5.2 thou/uL (1.40-6.50); %Basophils 0.1 % (0.0-1.0); %Eosinophils 0.2 % (0.0-10.0); %Lymphocytes 4.7 % (21.0-51.0); %Monocytes 9.3 % (0.0-10.0); %Neutrophils 85.7 % (42.0-75.0); Elliptocytes SLIGHT = 2-5 cells (100X) (0-1/hpf); Hemoglobin 9.9 g/dL (14.0-18.0); MDiff Complete? YES; Macrocytosis MODERATE=16-30 cells (100X) (0-5/hpf); Mean Corpuscular HGB CONC 34.6 g/dL (32.0-36.0); Mean Corpuscular Hemoglobin 37.1 pg (27.0-31.0); Mean Platelet Volume 7.5 fL (7.4-10.4); Ovalocytes SLIGHT = 2-5 cells (100X) (0-1/hpf); Platelet Count 75 thou/uL (130-400); Platelet Morphology Comment Appears Decreased; Red Blood Cell (RBC) Count 2.65 mill/uL (4.70-6.10); White Blood Cell (WBC) Count 6.1 thou/uL (4.8-10.8)
[2022-04-16] MEDS: Cefepime 1 GM in Sodium Chloride 0.9% 100 ML IVPB SCH ×2 (05:41→17:01)
[2022-04-16] MEDS: Midodrine HCl 5 MG TAB PO SCH ×3 (07:48→21:47)
[2022-04-16] MEDS: Amiodarone 200 MG TAB PO SCH (07:49)
[2022-04-16] MEDS ORDERED: Ketorolac Tromethamine 30 MG/ML VIAL IVP PRN (08:45)
[2022-04-16 13:58] LABS: Hemoglobin 8.3 g/dL (14.0-18.0)
[2022-04-16] MEDS ORDERED: Vancomycin 1 GM in Premix Bag 1 BAG IVPB SCH (17:00)
[2022-04-16] MEDS: Trospium 20 MG TAB PO SCH (21:47)
[2022-04-16] MEDS: HYDROcodone/Acetaminophen 5/325 mg Tablet PO PRN (22:06)
[2022-04-17] MEDS: Morphine 2 MG/ML VIAL SLOW IVP PRN ×3 (00:44→08:22)
[2022-04-17 04:22] LABS: #Eosinphils 0.1 thou/uL (0.0-0.7); #Lymphocytes 1.6 thou/uL (1.20-3.40); #Monocytes 0.9 thou/uL (0.11-0.59); #Neutrophils 8.1 thou/uL (1.40-6.50); %Basophils 0.3 % (0.0-1.0); %Eosinophils 0.6 % (0.0-10.0); %Lymphocytes 14.9 % (21.0-51.0); %Monocytes 8.5 % (0.0-10.0); %Neutrophils 75.7 % (42.0-75.0); Hemoglobin 8.8 g/dL (14.0-18.0); Mean Corpuscular HGB CONC 35.2 g/dL (32.0-36.0); Mean Corpuscular Hemoglobin 37.1 pg (27.0-31.0); Mean Platelet Volume 7.5 fL (7.4-10.4); Platelet Count 110 thou/uL (130-400); RBC Distribution Width 13.3 % (11.5-14.5); Red Blood Cell (RBC) Count 2.37 mill/uL (4.70-6.10); White Blood Cell (WBC) Count 10.7 thou/uL (4.8-10.8)
[2022-04-17] MEDS: Cefepime 1 GM in Sodium Chloride 0.9% 100 ML IVPB SCH ×2 (05:15→17:16)
[2022-04-17 07:11] LABS: Lactic Acid 1.9 mmol/L (0.5-2.2)
[2022-04-17] MEDS: Amiodarone 200 MG TAB PO SCH (08:22)
[2022-04-17] MEDS: Trospium 20 MG TAB PO SCH ×2 (08:22→20:10)
[2022-04-17] MEDS: Midodrine HCl 5 MG TAB PO SCH ×3 (08:26→20:10)
[2022-04-17] MEDS ORDERED: Furosemide 20 MG/2 ML VIAL SLOW IVP SCH (14:15)
[2022-04-17 14:45] LABS: Hemoglobin 7.8 g/dL (14.0-18.0)
[2022-04-17 16:27] LABS: Vancomycin, Trough 12.7 ug/mL
[2022-04-17] MEDS: HYDROcodone/Acetaminophen 5/325 mg Tablet PO PRN (20:11)
[2022-04-17] MEDS ORDERED: Phenylephrine 0.25% Nasal Spray 15 ML BOT ONE (21:54)
[2022-04-18] MEDS: HYDROcodone/Acetaminophen 5/325 mg Tablet PO PRN (01:39)
[2022-04-18 04:25] LABS: #Eosinphils 0.1 thou/uL (0.0-0.7); #Lymphocytes 1.9 thou/uL (1.20-3.40); #Monocytes 1.4 thou/uL (0.11-0.59); #Neutrophils 12.8 thou/uL (1.40-6.50); %Basophils 0.1 % (0.0-1.0); %Eosinophils 0.6 % (0.0-10.0); %Lymphocytes 11.9 % (21.0-51.0); %Monocytes 8.7 % (0.0-10.0); %Neutrophils 78.8 % (42.0-75.0); Hemoglobin 6.7 g/dL (14.0-18.0); Mean Corpuscular HGB CONC 34.8 g/dL (32.0-36.0); Mean Corpuscular Hemoglobin 37.3 pg (27.0-31.0); Mean Platelet Volume 7.3 fL (7.4-10.4); Platelet Count 161 thou/uL (130-400); RBC Distribution Width 13.4 % (11.5-14.5); Red Blood Cell (RBC) Count 1.79 mill/uL (4.70-6.10); White Blood Cell (WBC) Count 16.3 thou/uL (4.8-10.8)
[2022-04-18] MEDS: Cefepime 1 GM in Sodium Chloride 0.9% 100 ML IVPB SCH ×2 (07:26→17:40)
[2022-04-18] MEDS: Trospium 20 MG TAB PO SCH ×2 (08:25→20:55)
[2022-04-18] MEDS: Empagliflozin 10 MG TAB PO SCH (08:25)
[2022-04-18] MEDS: Midodrine HCl 5 MG TAB PO SCH ×3 (08:25→20:55)
[2022-04-18] MEDS: Amiodarone 200 MG TAB PO SCH (08:25)
[2022-04-18] MEDS: Morphine 2 MG/ML VIAL SLOW IVP PRN (09:00)
[2022-04-18] MEDS ORDERED: Magnesium 2 GM/50 ML(in water) 2 GM in Premix Bag 1 BAG IVPB SCH (10:00)
[2022-04-19 03:09] VITALS: BP 108/52
[2022-04-19] MEDS: Cefepime 1 GM in Sodium Chloride 0.9% 100 ML IVPB SCH (05:03)
[2022-04-19 05:43] LABS: Anion Gap 14 mmol/L (10-20); BUN (Urea Nitrogen) 57 mg/dL (8.4-25.7); Calc. Creatinine Clearance 17 mL/min (70-130); Carbon Dioxide 20 mmol/L (23-31); Chloride 98 mmol/L (98-107); Potassium 6.4 mmol/L (3.5-5.1); Sodium 126 mmol/L (136-145)
[2022-04-19 05:44] LABS: Calcium 8.4 mg/dL (7.8-10.44); Estimated GFR 22; Glucose 178 mg/dL (83-110)
[2022-04-19 06:00] LABS: Hemoglobin 9.1 g/dL (14.0-18.0); Mean Corpuscular HGB CONC 34.8 g/dL (32.0-36.0); Mean Corpuscular Hemoglobin 33.7 pg (27.0-31.0); Mean Corpuscular Volume 96.9 fL (78.0-98.0); Mean Platelet Volume 7.4 fL (7.4-10.4); Platelet Count 150 thou/uL (130-400); RBC Distribution Width 15.7 % (11.5-14.5); Red Blood Cell (RBC) Count 2.71 mill/uL (4.70-6.10); White Blood Cell (WBC) Count 16.7 thou/uL (4.8-10.8)
[2022-04-19 06:03] LABS: Band 16 % (5-11); Lymphocytes 7 % (21-51); MDiff Complete? YES; Monocytes 7 % (0-10); Neutrophil 70 % (42-75); Nucleated RBC 2 % (0); Polychromasia SLIGHT = 2-3 cells (100X) (0-2/hpf)
[2022-04-19] MEDS: Empagliflozin 10 MG TAB PO SCH (08:04)
[2022-04-19] MEDS: Amiodarone 200 MG TAB PO SCH (08:04)
[2022-04-19] MEDS: Trospium 20 MG TAB PO SCH ×2 (08:04→21:02)
[2022-04-19] MEDS: Midodrine HCl 5 MG TAB PO SCH ×3 (08:09→21:02)
[2022-04-19] MEDS ORDERED: Furosemide 20 MG/2 ML VIAL SLOW IVP SCH (09:00)
[2022-04-19] MEDS ORDERED: Calcium Gluconate 4.6 MEQ in Sodium Chloride 0.9% 100 ML IVPB ONE (09:24)
[2022-04-19] MEDS ORDERED: Dextrose 50% Abboject 50 ML SYRINGE SLOW IVP SCH (09:26)
[2022-04-19] MEDS ORDERED: Insulin Regular 300 UNITS/3 ML VIAL IVP SCH (09:30)
[2022-04-19] MEDS ORDERED: CALCIUM GLUC 1GM/NS 50ML 1 GM in Premix Bag 1 BAG IVPB SCH (09:45)
[2022-04-19] MEDS ORDERED: LOKELMA 10 GM PACKET PO SCH ×2 (10:00→19:30)
[2022-04-19 10:57] LABS: Anion Gap 15 mmol/L (10-20); BUN (Urea Nitrogen) 61 mg/dL (8.4-25.7); Calc. Creatinine Clearance 17 mL/min (70-130); Calcium 8.4 mg/dL (7.8-10.44); Carbon Dioxide 17 mmol/L (23-31); Chloride 98 mmol/L (98-107); Estimated GFR 21; Glucose 200 mg/dL (83-110); Potassium 6.4 mmol/L (3.5-5.1); Sodium 124 mmol/L (136-145)
[2022-04-19] MEDS: Sodium Bicarbonate 150 MEQ in Dextrose 5% in Water 1,000 ML IV SCH (13:48)
[2022-04-19 14:01] LABS: Hemoglobin 9.2 g/dL (14.0-18.0)
[2022-04-19 14:21] LABS: Anion Gap 16 mmol/L (10-20); BUN (Urea Nitrogen) 63 mg/dL (8.4-25.7); Calc. Creatinine Clearance 17 mL/min (70-130); Carbon Dioxide 18 mmol/L (23-31); Chloride 98 mmol/L (98-107); Estimated GFR 21; Glucose 152 mg/dL (83-110); Sodium 126 mmol/L (136-145)
[2022-04-19 18:18] LABS: Hemoglobin 8.8 g/dL (14.0-18.0)
[2022-04-19 18:35] LABS: Anion Gap 16 mmol/L (10-20); BUN (Urea Nitrogen) 65 mg/dL (8.4-25.7); Calc. Creatinine Clearance 17 mL/min (70-130); Calcium 8.8 mg/dL (7.8-10.44); Carbon Dioxide 20 mmol/L (23-31); Chloride 95 mmol/L (98-107); Estimated GFR 20; Glucose 211 mg/dL (83-110); Sodium 125 mmol/L (136-145)
[2022-04-19 19:18] LABS: Actual Bicarbonate (HCO3a) 21.6 mEq/L (22-28); Base Excess (BEa) -1.6 mEq/L (-2.0 to +3.0); CO2 Tension 30.8 mmHg (35.0-45.0); Calcium, Ionized (arterial) 1.22 mmol/L (1.12-1.30); Carboxyhemoglobin (COHb) 0.3 gm% (0.0-3.0); Hemoglobin (Hb) 9.1 g/dL (14.0-18.0); O2 Tension (PaO2), arterial 91.7 mmHg (> 60.0); Potassium - ABG Lab 5.73 mmol/L (3.70-5.30); pH, Arterial 7.46 (7.35-7.45)
[2022-04-19 19:21] LABS: Puncture Site LRA
[2022-04-20 00:34] LABS: Hemoglobin 8.4 g/dL (14.0-18.0)
[2022-04-20] MEDS: Cefepime 1 GM in Sodium Chloride 0.9% 100 ML IVPB SCH (06:12)
[2022-04-20 06:33] LABS: Anion Gap 16 mmol/L (10-20); BUN (Urea Nitrogen) 71 mg/dL (8.4-25.7); Calc. Creatinine Clearance 16 mL/min (70-130); Calcium 8.7 mg/dL (7.8-10.44); Carbon Dioxide 19 mmol/L (23-31); Chloride 95 mmol/L (98-107); Estimated GFR 20; Glucose 208 mg/dL (83-110); Potassium 5.4 mmol/L (3.5-5.1); Sodium 125 mmol/L (136-145)
[2022-04-20 07:05] LABS: #Eosinphils 0.1 thou/uL (0.0-0.7); #Lymphocytes 1.4 thou/uL (1.20-3.40); #Monocytes 1.6 thou/uL (0.11-0.59); %Eosinophils 0.7 % (0.0-10.0); %Lymphocytes 10.6 % (21.0-51.0); %Monocytes 12.1 % (0.0-10.0); %Neutrophils 76.6 % (42.0-75.0); Hemoglobin 8.2 g/dL (14.0-18.0); Mean Corpuscular Volume 97.1 fL (78.0-98.0); Mean Platelet Volume 7.3 fL (7.4-10.4); Platelet Count 87 thou/uL (130-400); Platelet Morphology Comment Appears Decreased; RBC Distribution Width 16.7 % (11.5-14.5); Red Blood Cell (RBC) Count 2.47 mill/uL (4.70-6.10)
[2022-04-20] MEDS: Sodium Bicarbonate 150 MEQ in Dextrose 5% in Water 1,000 ML IV SCH (07:40)
[2022-04-20] MEDS: Amiodarone 200 MG TAB PO SCH ×2 (09:48→10:37)
[2022-04-20] MEDS: Trospium 20 MG TAB PO SCH ×3 (09:48→21:22)
[2022-04-20] MEDS: Midodrine HCl 5 MG TAB PO SCH ×4 (09:49→21:22)
[2022-04-20] MEDS: LOKELMA 10 GM PACKET PO SCH ×4 (09:50→21:22)
[2022-04-20] MEDS: Morphine 2 MG/ML VIAL SLOW IVP PRN ×2 (10:35→15:00)
[2022-04-20] MEDS: Sodium Chloride 0.9% 1,000 ML IV SCH (10:51)
[2022-04-20 13:10] LABS: Hemoglobin 8.7 g/dL (14.0-18.0)
[2022-04-20 17:54] LABS: Hemoglobin 8.3 g/dL (14.0-18.0)
[2022-04-21 01:52] LABS: #Eosinphils 0.1 thou/uL (0.0-0.7); #Monocytes 1.3 thou/uL (0.11-0.59); #Neutrophils 8.3 thou/uL (1.40-6.50); %Basophils 0.2 % (0.0-1.0); %Lymphocytes 9.4 % (21.0-51.0); %Monocytes 11.8 % (0.0-10.0); %Neutrophils 77.7 % (42.0-75.0); Hemoglobin 7.8 g/dL (14.0-18.0); Mean Corpuscular HGB CONC 34.7 g/dL (32.0-36.0); Mean Corpuscular Hemoglobin 33.9 pg (27.0-31.0); Mean Corpuscular Volume 97.9 fL (78.0-98.0); Mean Platelet Volume 6.8 fL (7.4-10.4); Platelet Count 100 thou/uL (130-400); RBC Distribution Width 15.6 % (11.5-14.5); White Blood Cell (WBC) Count 10.7 thou/uL (4.8-10.8)
[2022-04-21 03:04] LABS: Anion Gap 17 mmol/L (10-20); BUN (Urea Nitrogen) 81 mg/dL (8.4-25.7); Calc. Creatinine Clearance 15 mL/min (70-130); Calcium 8.9 mg/dL (7.8-10.44); Carbon Dioxide 21 mmol/L (23-31); Chloride 95 mmol/L (98-107); Estimated GFR 18; Glucose 179 mg/dL (83-110); Magnesium 3.2 mg/dL (1.6-2.6); Potassium 5.3 mmol/L (3.5-5.1); Sodium 128 mmol/L (136-145)
[2022-04-21] MEDS: Cefepime 1 GM in Sodium Chloride 0.9% 100 ML IVPB SCH (06:29)
[2022-04-21] MEDS: Sodium Chloride 0.9% 1,000 ML IV SCH (06:30)
[2022-04-21 08:02] LABS: Hemoglobin 8.1 g/dL (14.0-18.0)
[2022-04-21] MEDS: Midodrine HCl 5 MG TAB PO SCH ×3 (09:42→20:34)
[2022-04-21] MEDS: Trospium 20 MG TAB PO SCH ×2 (09:42→20:34)
[2022-04-21] MEDS: Amiodarone 200 MG TAB PO SCH (09:42)
[2022-04-21] MEDS: LOKELMA 10 GM PACKET PO SCH ×3 (09:42→20:34)
[2022-04-21 13:21] LABS: Hemoglobin 8.1 g/dL (14.0-18.0)
[2022-04-21 18:17] LABS: Hemoglobin 7.9 g/dL (14.0-18.0)
[2022-04-21 23:38] LABS: Hemoglobin 7.8 g/dL (14.0-18.0)
[2022-04-22 04:37] LABS: Anion Gap 14 mmol/L (10-20); BUN (Urea Nitrogen) 84 mg/dL (8.4-25.7); Calc. Creatinine Clearance 16 mL/min (70-130); Calcium 8.3 mg/dL (7.8-10.44); Carbon Dioxide 22 mmol/L (23-31); Chloride 95 mmol/L (98-107); Estimated GFR 19; Glucose 129 mg/dL (83-110); Magnesium 3.2 mg/dL (1.6-2.6); Potassium 4.2 mmol/L (3.5-5.1); Sodium 127 mmol/L (136-145)
[2022-04-22] MEDS: Cefepime 1 GM in Sodium Chloride 0.9% 100 ML IVPB SCH (05:11)
[2022-04-22 05:36] LABS: #Eosinphils 0.1 thou/uL (0.0-0.7); #Lymphocytes 0.6 thou/uL (1.20-3.40); #Monocytes 0.8 thou/uL (0.11-0.59); #Neutrophils 5.9 thou/uL (1.40-6.50); %Eosinophils 1.1 % (0.0-10.0); %Lymphocytes 7.9 % (21.0-51.0); %Monocytes 11.4 % (0.0-10.0); %Neutrophils 79.6 % (42.0-75.0); Anisocytosis SLIGHT = 6-15 cells (100X) (0-5/hpf); Hemoglobin 7.7 g/dL (14.0-18.0); MDiff Complete? YES; Macrocytosis SLIGHT = 6-15 cells (100X) (0-5/hpf); Mean Corpuscular HGB CONC 33.6 g/dL (32.0-36.0); Mean Platelet Volume 6.7 fL (7.4-10.4); Platelet Count 70 thou/uL (130-400); Platelet Morphology Comment Appears Decreased; Polychromasia SLIGHT = 2-3 cells (100X) (0-2/hpf); RBC Distribution Width 18.6 % (11.5-14.5); Red Blood Cell (RBC) Count 2.27 mill/uL (4.70-6.10); White Blood Cell (WBC) Count 7.4 thou/uL (4.8-10.8)
[2022-04-22] MEDS ORDERED: DOBUTamine 500 mg/250 ml 250 ML IVPB SCH (09:45)
[2022-04-22] MEDS: Midodrine HCl 5 MG TAB PO SCH ×2 (09:55→13:46)
[2022-04-22] MEDS: Amiodarone 200 MG TAB PO SCH (09:55)
[2022-04-22] MEDS: Trospium 20 MG TAB PO SCH (09:55)
[2022-04-22] MEDS: LOKELMA 10 GM PACKET PO SCH (09:55)
[2022-04-22 10:50] LABS: Hemoglobin 8.3 g/dL (14.0-18.0)
[2022-04-22 11:38] VITALS: BMI 19.8
[2022-04-22 16:25] VITALS: TEMP 97.1
== END 2022-04-22 19:11 | disposition hospice, inpatient (51) | DRG 871 ==
LOC: ERS 10:38 → SUATTDRO 10:38 → 2NO 14:05 → IMCU/EMU 04-16 18:23 → UNDODISIN 04-22 17:17
PROVIDERS: ADMIT Internal Medicine; ATTEND Family Medicine
PROC: 3E03329 Introduction of Other Anti-infective into Peripheral Vein, Percutaneous Approach (ICD-10-PCS; 2022-04-15)
PROC: 30233N1 Transfusion of Nonautologous Red Blood Cells into Peripheral Vein, Percutaneous Approach (ICD-10-PCS; principal; 2022-04-16)
DX: A41.9 Sepsis, unspecified organism (principal); E43 Unspecified severe protein-calorie malnutrition; N17.9 Acute kidney failure, unspecified; D62 Acute posthemorrhagic anemia; I50.22 Chronic systolic (congestive) heart failure; I42.9 Cardiomyopathy, unspecified; E87.2 Acidosis; N18.4 Chronic kidney disease, stage 4 (severe); E87.1 Hypo-osmolality and hyponatremia; Z68.1 Body mass index [BMI] 19.9 or less, adult; I13.0 Hypertensive heart and chronic kidney disease with heart failure and stage 1 through stage 4 chronic kidney disease, or unspecified chronic kidney disease; N30.81 Other cystitis with hematuria; E78.5 Hyperlipidemia, unspecified; I25.10 Atherosclerotic heart disease of native coronary artery without angina pectoris; I48.0 Paroxysmal atrial fibrillation; E87.5 Hyperkalemia; Z66 Do not resuscitate; Z20.822 Contact with and (suspected) exposure to COVID-19; Z79.899 Other long term (current) drug therapy; Z85.46 Personal history of malignant neoplasm of prostate; Z95.810 Presence of automatic (implantable) cardiac defibrillator; Z86.73 Personal history of transient ischemic attack (TIA), and cerebral infarction without residual deficits
CPT/HCPCS: 36415; 36430; 36600; 51702; 71045; 74176; 80048; 80053; 80202; 81003; 81015; 82533; 82550; 82805; 83605; 83735; 85014; 85018; 85025; 85610; 85730; 86850; 86900; 86901; 87040; 87077; 87086; 87186; 87811; 93005; 93010; 96365; 96367; J0610; J0692; J0696; J1815; J1885; J1940; J2270; J3370; J3475; J3490; J7050; J7070; J7999; P9016; U0003; U0005

== ENCOUNTER 2022-04-22 19:16 | Inpatient (IN) | payer OTHER ==
[2022-04-22] MEDS ORDERED: Bisacodyl 10 MG SUPP PR PRN (19:58)
[2022-04-22] MEDS ORDERED: Scopolamine 1.5 mg/72 hour Patch TOP PRN (20:00)
[2022-04-22] MEDS ORDERED: Promethazine HCl 25 MG SUPP PR PRN (20:00)
[2022-04-22] MEDS ORDERED: Acetaminophen 650 MG Suppository PR PRN (20:00)
[2022-04-22] MEDS ORDERED: Haloperidol Lactate 5 MG/ML VIAL SLOW IVP PRN (20:00)
[2022-04-22] MEDS ORDERED: Ondansetron PF 4 MG/2 ML Vial IVP PRN (20:00)
[2022-04-23] MEDS: Morphine 2 MG/ML VIAL SLOW IVP PRN ×2 (09:08→22:49)
[2022-04-24] MEDS: Morphine 2 MG/ML VIAL SLOW IVP PRN ×4 (03:56→20:33)
[2022-04-24] MEDS: Diazepam 10 MG/2 ML SYRINGE IVP PRN ×2 (09:46→22:41)
[2022-04-25] MEDS: Morphine 2 MG/ML VIAL SLOW IVP PRN (07:08)
[2022-04-25] MEDS ORDERED: Lansoprazole 3 MG/ML ORAL SUSPENSION PO PRN (19:21)
[2022-04-26] MEDS: Morphine 2 MG/ML VIAL SLOW IVP PRN ×4 (00:56→18:13)
[2022-04-26] MEDS: diphenhydrAMINE 50 MG/ML VIAL IVP PRN ×2 (01:05→09:46)
[2022-04-26] MEDS: Diazepam 10 MG/2 ML SYRINGE IVP PRN ×2 (05:23→19:10)
[2022-04-27] MEDS: Morphine 2 MG/ML VIAL SLOW IVP PRN (18:31)
[2022-04-28] MEDS: Morphine 2 MG/ML VIAL SLOW IVP PRN ×2 (07:29→10:49)
[2022-04-28] MEDS ORDERED: Morphine 4 MG/ML VIAL SLOW IVP SCH (12:45)
[2022-04-28] MEDS: Morphine 4 MG/ML VIAL SLOW IVP PRN (19:39)
[2022-04-29] MEDS: Morphine 4 MG/ML VIAL SLOW IVP PRN ×2 (08:27→12:57)
[2022-04-30] MEDS: Morphine 4 MG/ML VIAL SLOW IVP PRN ×2 (06:01→12:47)
[2022-05-01] MEDS: Morphine 4 MG/ML VIAL SLOW IVP PRN ×4 (03:03→20:42)
[2022-05-01] MEDS: Diazepam 10 MG/2 ML SYRINGE IVP PRN (03:21)
[2022-05-01 09:51] VITALS: TEMP 97.2
[2022-05-01] MEDS: Midazolam HCl 2 mg/2 ml Vial IVP PRN ×2 (12:29→18:27)
[2022-05-02] MEDS: Morphine 4 MG/ML VIAL SLOW IVP PRN ×3 (05:35→10:56)
[2022-05-02] MEDS: Midazolam HCl 2 mg/2 ml Vial IVP PRN (08:19)
[2022-05-02 09:21] VITALS: BP 91/54
[2022-05-02] MEDS ORDERED: Midazolam HCl 2 mg/2 ml Vial IVP PRN (12:20)
== END 2022-05-02 12:10 | disposition expired | DRG 951 ==
LOC: IMCU/EMU 19:16 → T4-B 04-23 21:12
PROVIDERS: ADMIT Family Medicine; ATTEND Family Medicine
PROC: 3E1K78Z Irrigation of Genitourinary Tract using Irrigating Substance, Via Natural or Artificial Opening (ICD-10-PCS; principal; 2022-04-22)
DX: Z51.5 Encounter for palliative care (principal); Z66 Do not resuscitate; A41.9 Sepsis, unspecified organism; N18.4 Chronic kidney disease, stage 4 (severe); Z68.1 Body mass index [BMI] 19.9 or less, adult; I25.10 Atherosclerotic heart disease of native coronary artery without angina pectoris; I50.9 Heart failure, unspecified; D63.1 Anemia in chronic kidney disease; N30.91 Cystitis, unspecified with hematuria; R33.9 Retention of urine, unspecified; R45.1 Restlessness and agitation; K59.00 Constipation, unspecified; R63.0 Anorexia
CPT/HCPCS: J1200; J2250; J2270; J3360